=== PATIENT | female | born 1985 | race Caucasian/White ===

== ENCOUNTER 2016-10-24 01:06 | Emergency (ER) | payer SELFPAY ==
[~2016-10-24] VITALS: Ht 160 cm; Wt 69.9 kg
[~2016-10-24 01:06] MED LIST: ACETAMINOPHEN325 M2 PO; ALBUTEROL0.09 MG/A2 INH; AMOXICILLIN500 M2 PO; ANAPROX DS550 MG PO; AURODEX 54 MG/M10 ML OT; CLARITIN10 MG PO; DEBROX15 ML OT; FE-2020 MG PO; FLONASE ALLERG9.9 ML NAS; HYDROCODONE BIT1 T11 PO; IBU800 MG PO; KEFLEX500 MG PO; LATU60TA PO; MACROBID100 M1 PO; MOTRIN800 MG PO; Motrin,Rufen800 MG PO; NUVARING1 ICR VG; PERCOCET 325 MG1 TA5 PO; PREDNISONE10 MG PO; PRENATAL1 TA1 PO; QVAR0.08 MG/AC INH; ROBITUSSIN AC 110 ML PO; ULTRAM50 MG PO; ZOFRAN4 MG PO; ZOLOFT100 MG PO
[2016-10-24 02:34] LABS: BASO # 0.1 10*3/uL (0.0-0.1); BASO % 0.6 % (0.0-1.0); EOS # 0.3 10*3/uL (0.0-0.4); HEMATOCRIT 39.3 % (37.0-47.0); HEMOGLOBIN 12.9 g/dl (12.0-16.0); LYMPH # 3.2 10*3/uL (1.3-4.4); LYMPH % 37.5 % (27.0-41.0); MEAN CELL VOLUME 92.3 fl (81.0-99.0); MEAN CORPUSCULAR HGB 30.3 pg (27.0-31.0); MEAN CORPUSCULAR HGB CONC 32.8 g/dl (33.0-37.0); MEAN PLATELET VOLUME 9.9 fl (9.6-12.3); MONO # 0.6 10*3/uL (0.1-1.0); MONO % 7.2 % (3.0-9.0); NEUT # 4.4 10*3/uL (2.3-7.9); NEUT % 51.6 % (47.0-73.0); PLATELET COUNT AUTOMATED 244 10*3/uL (130-400); RED BLOOD COUNT 4.26 10*6/uL (4.10-5.10); RED CELL DISTRI WIDTH 13.2 % (0-14.5); WHITE BLOOD COUNT 8.6 10*3/uL (4.8-10.8)
[2016-10-24] MEDS ORDERED: Motrin,Rufen800 MG PO (02:38)
[2016-10-24 02:45] LABS: BUN 16 mg/dl (7-24); CARBON DIOXIDE 27 mmol/L (21-32); CHLORIDE 109 mmol/L (98-107); EST GLOM FILT AFRICAN AMERICAN > 60 ml/min; GLUCOSE 95 mg/dL (65-99); POTASSIUM 3.7 mmol/L (3.5-5.1); SODIUM 145 mmol/L (136-145)
[2016-10-24 02:50] LABS: B-hCG (QUALITATIVE) NEGATIVE (NEGATIVE)
== END 2016-10-24 03:09 | disposition home or self-care (01) ==
LOC: ED 01:06
PROVIDERS: Emergency Medicine Emergency Medical Services
DX: S00.03XA Contusion of scalp, initial encounter (principal); G43.909 Migraine, unspecified, not intractable, without status migrainosus; F17.200 Nicotine dependence, unspecified, uncomplicated; Z91.040 Latex allergy status; Z88.1 Allergy status to other antibiotic agents; W18.09XA Striking against other object with subsequent fall, initial encounter; Y93.89 Activity, other specified; Y92.89 Other specified places as the place of occurrence of the external cause; Y99.8 Other external cause status

== ENCOUNTER 2017-01-08 08:35 | Emergency (ER) | payer SELFPAY ==
[~2017-01-08] VITALS: Ht 157.4 cm; Wt 63.5 kg
[2017-01-08] MEDS ORDERED: LATU80TA PO (08:38)
== END 2017-01-08 09:46 | disposition home or self-care (01) ==
LOC: ED 08:35
DX: K08.89 Other specified disorders of teeth and supporting structures (principal); F17.200 Nicotine dependence, unspecified, uncomplicated; Z98.890 Other specified postprocedural states; Z90.49 Acquired absence of other specified parts of digestive tract; Z79.899 Other long term (current) drug therapy; Z91.040 Latex allergy status; Z88.1 Allergy status to other antibiotic agents; Z88.8 Allergy status to other drugs, medicaments and biological substances

== ENCOUNTER 2017-03-11 20:50 | Emergency (ER) | payer SELFPAY ==
[~2017-03-11] VITALS: Ht 172.7 cm; Wt 65.8 kg
[~2017-03-11 20:50] MED LIST changes: +LATU80TA PO
[2017-03-11 21:36] LABS: BASO # 0.1 10*3/uL (0.0-0.1); BASO % 0.6 % (0.0-1.0); EOS # 0.1 10*3/uL (0.0-0.4); EOS % 0.8 % (1.0-4.0); HEMATOCRIT 41.1 % (37.0-47.0); HEMOGLOBIN 13.7 g/dl (12.0-16.0); MEAN CELL VOLUME 91.5 fl (81.0-99.0); MEAN CORPUSCULAR HGB 30.5 pg (27.0-31.0); MEAN CORPUSCULAR HGB CONC 33.3 g/dl (33.0-37.0); MEAN PLATELET VOLUME 9.6 fl (9.6-12.3); MONO # 0.4 10*3/uL (0.1-1.0); NEUT # 6.2 10*3/uL (2.3-7.9); NEUT % 70.4 % (47.0-73.0); PLATELET COUNT AUTOMATED 279 10*3/uL (130-400); RED BLOOD COUNT 4.49 10*6/uL (4.10-5.10); RED CELL DISTRI WIDTH 12.7 % (0-14.5); WHITE BLOOD COUNT 8.8 10*3/uL (4.8-10.8)
[2017-03-11 21:51] LABS: ALBUMIN 3.9 gm/dl (3.1-4.5); ALKALINE PHOSPHATASE 71 U/L (45-117); BILIRUBIN, TOTAL 0.2 mg/dl (0.2-1.0); BUN 12 mg/dl (7-24); CARBON DIOXIDE 25 mmol/L (21-32); CHLORIDE 111 mmol/L (98-107); EST GLOM FILT AFRICAN AMERICAN > 60 ml/min; GLUCOSE 98 mg/dL (65-99); POTASSIUM 4.1 mmol/L (3.5-5.1); SGOT/AST 9 IU/L (3-35); SGPT/ALT 20 U/L (12-78); SODIUM 140 mmol/L (136-145); TOTAL PROTEIN 7.2 gm/dL (6.4-8.2)
[2017-03-11 23:16] LABS: BILIRUBIN NEGATIVE (NEGATIVE); BLOOD NEGATIVE (NEGATIVE); CLARITY CLEAR (CLEAR); COLOR YELLOW (YELLOW); GLUCOSE NEGATIVE (NEGATIVE); KETONE NEGATIVE (NEGATIVE); LEUKO ESTERASE NEGATIVE (NEGATIVE); NITRITE NEGATIVE (NEGATIVE); PROTEIN NEGATIVE (NEGATIVE); UROBILINOGEN 0.2 E.U./dl (0.2-1.0)
[2017-03-11 23:31] LABS: BACTERIA TRACE; RBC 0-2 rbc/hpf (0-2); URINE REFLEX COMMENT NO (NO)
== END 2017-03-11 23:57 | disposition home or self-care (01) ==
LOC: ED 20:50
PROVIDERS: Nurse Practitioner
DX: R10.11 Right upper quadrant pain (principal); Z87.442 Personal history of urinary calculi; Z91.040 Latex allergy status; Z88.1 Allergy status to other antibiotic agents; Z79.899 Other long term (current) drug therapy

== ENCOUNTER 2017-04-07 23:36 | Emergency (ER) | payer SELFPAY ==
[~2017-04-07] VITALS: Ht 157.4 cm; Wt 70.8 kg
[2017-04-08] MEDS ORDERED: ZITHROMAX250 MG PO (00:48)
[2017-04-08] MEDS ORDERED: MEDROL DOSEPAK4 MG PO (00:48)
== END 2017-04-08 01:12 | disposition home or self-care (01) ==
LOC: ED 23:36
DX: J40 Bronchitis, not specified as acute or chronic (principal); F17.200 Nicotine dependence, unspecified, uncomplicated; G43.909 Migraine, unspecified, not intractable, without status migrainosus; Z98.890 Other specified postprocedural states; Z90.49 Acquired absence of other specified parts of digestive tract; Z87.442 Personal history of urinary calculi; Z79.899 Other long term (current) drug therapy; Z91.040 Latex allergy status; Z88.1 Allergy status to other antibiotic agents; Z88.8 Allergy status to other drugs, medicaments and biological substances

== ENCOUNTER 2017-04-14 15:09 | Emergency (ER) | payer SELFPAY ==
[~2017-04-14] VITALS: Wt 69.9 kg
[~2017-04-14 15:09] MED LIST changes: +MEDROL DOSEPAK4 MG PO; +ZITHROMAX250 MG PO
[2017-04-14] MEDS ORDERED: ROBITUSSIN DM 105 ML PO (17:34)
[2017-04-14] MEDS ORDERED: NAPROSYN500 MG PO (17:34)
[2017-04-14] MEDS ORDERED: FLONASE ALLERG9.9 ML NAS (17:34)
== END 2017-04-14 17:45 | disposition home or self-care (01) ==
LOC: ED 15:09
DX: S93.602A Unspecified sprain of left foot, initial encounter (principal); B34.9 Viral infection, unspecified; R03.0 Elevated blood-pressure reading, without diagnosis of hypertension; H92.02 Otalgia, left ear; F17.200 Nicotine dependence, unspecified, uncomplicated; Z91.040 Latex allergy status; Z88.1 Allergy status to other antibiotic agents; Z79.899 Other long term (current) drug therapy; X58.XXXA Exposure to other specified factors, initial encounter; Y93.9 Activity, unspecified; Y92.9 Unspecified place or not applicable; Y99.9 Unspecified external cause status

== ENCOUNTER 2017-05-09 23:25 | Emergency (ER) | payer SELFPAY ==
[~2017-05-09] VITALS: Ht 160 cm; Wt 59.0 kg
[~2017-05-09 23:25] MED LIST changes: +NAPROSYN500 MG PO; +ROBITUSSIN DM 105 ML PO
[2017-05-09] MEDS ORDERED: CLEOCIN HCL300 MG PO (23:43)
== END 2017-05-10 00:33 | disposition home or self-care (01) ==
LOC: ED 23:25
DX: K02.9 Dental caries, unspecified (principal); G43.909 Migraine, unspecified, not intractable, without status migrainosus; F17.200 Nicotine dependence, unspecified, uncomplicated; Z91.040 Latex allergy status; Z88.1 Allergy status to other antibiotic agents

== ENCOUNTER 2017-06-20 17:02 | Emergency (ER) | payer SELFPAY ==
[~2017-06-20] VITALS: Ht 160 cm; Wt 61.2 kg
[~2017-06-20 17:02] MED LIST changes: +CLEOCIN HCL300 MG PO
[2017-06-20] MEDS ORDERED: NAPROSYN500 MG PO (17:09)
[2017-06-20] MEDS ORDERED: PENICILLIN VK500 MG PO (17:09)
[2017-06-20] MEDS ORDERED: Peridex 473 ML473 ML PO (17:09)
== END 2017-06-20 17:09 | disposition home or self-care (01) ==
LOC: ED 17:02
DX: K02.9 Dental caries, unspecified (principal); G43.909 Migraine, unspecified, not intractable, without status migrainosus; F17.200 Nicotine dependence, unspecified, uncomplicated; Z91.040 Latex allergy status; Z88.1 Allergy status to other antibiotic agents

== ENCOUNTER 2017-07-09 07:49 | Emergency (ER) | payer SELFPAY ==
[~2017-07-09] VITALS: Ht 160 cm; Wt 64.9 kg
[~2017-07-09 07:49] MED LIST changes: +PENICILLIN VK500 MG PO; +Peridex 473 ML473 ML PO
[2017-07-09] MEDS ORDERED: PENICILLIN VK500 MG PO (08:10)
[2017-07-09] MEDS ORDERED: NAPROSYN500 MG PO (08:10)
== END 2017-07-09 09:02 | disposition home or self-care (01) ==
LOC: ED 07:49
DX: K02.9 Dental caries, unspecified (principal); G43.909 Migraine, unspecified, not intractable, without status migrainosus; J45.901 Unspecified asthma with (acute) exacerbation; Z90.49 Acquired absence of other specified parts of digestive tract; F17.200 Nicotine dependence, unspecified, uncomplicated; F10.10 Alcohol abuse, uncomplicated; Z91.040 Latex allergy status; Z88.2 Allergy status to sulfonamides; Z88.1 Allergy status to other antibiotic agents; Z88.8 Allergy status to other drugs, medicaments and biological substances

== ENCOUNTER 2017-08-05 08:03 | Emergency (ER) | payer SELFPAY ==
[~2017-08-05] VITALS: Wt 69.4 kg
[2017-08-05] MEDS ORDERED: Motrin,Rufen800 MG PO (10:30)
== END 2017-08-05 10:45 | disposition home or self-care (01) ==
LOC: ED 08:03
DX: S80.01XA Contusion of right knee, initial encounter (principal); S60.211A Contusion of right wrist, initial encounter; F17.200 Nicotine dependence, unspecified, uncomplicated; Z91.040 Latex allergy status; Z88.1 Allergy status to other antibiotic agents; W00.0XXA Fall on same level due to ice and snow, initial encounter; Y93.89 Activity, other specified; Y92.89 Other specified places as the place of occurrence of the external cause; Y99.8 Other external cause status

== ENCOUNTER 2017-09-12 00:42 | Emergency (ER) | payer SELFPAY ==
[~2017-09-12] VITALS: Ht 160 cm; Wt 61.2 kg
[2017-09-12 01:17] LABS: BASO % 0.3 % (0.0-1.0); EOS # 0.3 10*3/uL (0.0-0.4); EOS % 3.2 % (1.0-4.0); HEMATOCRIT 35.8 % (37.0-47.0); HEMOGLOBIN 11.8 g/dl (12.0-16.0); LYMPH # 2.9 10*3/uL (1.3-4.4); LYMPH % 32.4 % (27.0-41.0); MEAN PLATELET VOLUME 9.7 fl (9.6-12.3); MONO # 0.7 10*3/uL (0.1-1.0); MONO % 7.7 % (3.0-9.0); NEUT % 56.2 % (47.0-73.0); PLATELET COUNT AUTOMATED 271 10*3/uL (130-400); RED BLOOD COUNT 3.81 10*6/uL (4.10-5.10); RED CELL DISTRI WIDTH 13.9 % (0-14.5); WHITE BLOOD COUNT 8.9 10*3/uL (4.8-10.8)
[2017-09-12 01:29] LABS: BUN 16 mg/dl (7-24); CHLORIDE 109 mmol/L (98-107); CREATININE 0.86 mg/dL (0.55-1.02); POTASSIUM 3.7 mmol/L (3.5-5.1); SODIUM 141 mmol/L (136-145)
[2017-09-12] MEDS ORDERED: ZOFRAN ODT4 MG SL (01:53)
[2017-09-12] MEDS ORDERED: Motrin,Rufen800 MG PO (01:53)
== END 2017-09-12 02:16 | disposition home or self-care (01) ==
LOC: ED 00:42
PROVIDERS: Emergency Medicine Emergency Medical Services
DX: G43.919 Migraine, unspecified, intractable, without status migrainosus (principal); Z87.442 Personal history of urinary calculi; Z98.890 Other specified postprocedural states; Z90.49 Acquired absence of other specified parts of digestive tract; Z91.040 Latex allergy status; Z88.1 Allergy status to other antibiotic agents; Z88.8 Allergy status to other drugs, medicaments and biological substances

== ENCOUNTER 2017-10-17 10:57 | Emergency (ER) | payer SELFPAY ==
[~2017-10-17] VITALS: Ht 160 cm; Wt 64.9 kg
[~2017-10-17 10:57] MED LIST changes: +ZOFRAN ODT4 MG SL
[2017-10-17] MEDS ORDERED: PREDNISONE20 M1 PO (11:38)
[2017-10-17] MEDS ORDERED: NAPROSYN500 MG PO (11:38)
== END 2017-10-17 11:56 | disposition home or self-care (01) ==
LOC: ED 10:57
DX: M43.12 Spondylolisthesis, cervical region (principal); F17.210 Nicotine dependence, cigarettes, uncomplicated; Z88.1 Allergy status to other antibiotic agents; Z91.040 Latex allergy status

== ENCOUNTER 2017-11-03 13:13 | Emergency (ER) | payer SELFPAY ==
[~2017-11-03] VITALS: Ht 160 cm; Wt 64.9 kg
[~2017-11-03 13:13] MED LIST changes: +PREDNISONE20 M1 PO
[2017-11-03] MEDS ORDERED: PENICILLIN VK500 MG PO (13:22)
[2017-11-03] MEDS ORDERED: Peridex 473 ML473 ML PO (13:22)
[2017-11-03] MEDS ORDERED: ZOFRAN4 MG PO (13:22)
[2017-11-03] MEDS ORDERED: NAPROSYN500 MG PO (13:22)
== END 2017-11-03 13:31 | disposition home or self-care (01) ==
LOC: ED 13:13
DX: K08.89 Other specified disorders of teeth and supporting structures (principal); G43.909 Migraine, unspecified, not intractable, without status migrainosus; Z98.890 Other specified postprocedural states; Z90.49 Acquired absence of other specified parts of digestive tract; Z87.442 Personal history of urinary calculi; Z79.899 Other long term (current) drug therapy; Z91.040 Latex allergy status; Z88.1 Allergy status to other antibiotic agents; Z88.8 Allergy status to other drugs, medicaments and biological substances

== ENCOUNTER 2017-11-09 15:28 | Emergency (ER) | payer SELFPAY ==
[~2017-11-09] VITALS: Ht 160 cm; Wt 63.5 kg
[2017-11-09] MEDS ORDERED: TESSALON PERLE100 M1 PO (17:26)
[2017-11-09] MEDS ORDERED: PROAIR HFA8.5 GM INH (17:26)
[2017-11-09] MEDS ORDERED: MUCINEX1200 M1 PO (17:26)
== END 2017-11-09 17:30 | disposition home or self-care (01) ==
LOC: ED 15:28
DX: J06.9 Acute upper respiratory infection, unspecified (principal); F17.200 Nicotine dependence, unspecified, uncomplicated; J45.909 Unspecified asthma, uncomplicated; Z98.890 Other specified postprocedural states; Z90.49 Acquired absence of other specified parts of digestive tract; Z79.899 Other long term (current) drug therapy; Z91.040 Latex allergy status; Z88.1 Allergy status to other antibiotic agents; Z88.2 Allergy status to sulfonamides; Z88.8 Allergy status to other drugs, medicaments and biological substances

== ENCOUNTER 2017-12-08 12:28 | Emergency (ER) | payer SELFPAY ==
[~2017-12-08] VITALS: Ht 167.6 cm; Wt 63.5 kg
[~2017-12-08 12:28] MED LIST changes: +MUCINEX1200 M1 PO; +PROAIR HFA8.5 GM INH; +TESSALON PERLE100 M1 PO
[2017-12-08 12:56] LABS: BILIRUBIN NEGATIVE (NEGATIVE); BLOOD TRACE-LYSED (NEGATIVE); CLARITY CLOUDY (CLEAR); COLOR YELLOW (YELLOW); GLUCOSE NEGATIVE (NEGATIVE); KETONE NEGATIVE (NEGATIVE); LEUKO ESTERASE 1+ (NEGATIVE); NITRITE NEGATIVE (NEGATIVE); SPECIFIC GRAVITY 1.025 (1.005-1.030); UROBILINOGEN 0.2 E.U./dl (0.2-1.0)
[2017-12-08 13:09] LABS: BACTERIA 4+; EPITHELIAL CELLS 20-30; WBC 41-50 wbc/hpf (0-5)
[2017-12-08 13:37] LABS: BASO # 0.1 10*3/uL (0.0-0.1); BASO % 0.7 % (0.0-1.0); EOS # 0.2 10*3/uL (0.0-0.4); EOS % 2.5 % (1.0-4.0); HEMATOCRIT 41.4 % (37.0-47.0); HEMOGLOBIN 13.3 g/dl (12.0-16.0); LYMPH # 2.2 10*3/uL (1.3-4.4); LYMPH % 32.7 % (27.0-41.0); MEAN CELL VOLUME 96.5 fl (81.0-99.0); MEAN CORPUSCULAR HGB CONC 32.1 g/dl (33.0-37.0); MEAN PLATELET VOLUME 9.7 fl (9.6-12.3); MONO # 0.5 10*3/uL (0.1-1.0); MONO % 6.8 % (3.0-9.0); NEUT # 3.9 10*3/uL (2.3-7.9); NEUT % 56.9 % (47.0-73.0); PLATELET COUNT AUTOMATED 244 10*3/uL (130-400); RED BLOOD COUNT 4.29 10*6/uL (4.10-5.10); RED CELL DISTRI WIDTH 12.8 % (0-14.5); WHITE BLOOD COUNT 6.8 10*3/uL (4.8-10.8)
[2017-12-08 13:46] LABS: ACT PARTIAL THROMBO TIME 21.4 SECONDS (20.8-31.5)
[2017-12-08 13:49] LABS: ALBUMIN 3.9 gm/dl (3.1-4.5); BUN 18 mg/dl (7-24); CHLORIDE 113 mmol/L (98-107); POTASSIUM 3.8 mmol/L (3.5-5.1); SGOT/AST 18 IU/L (3-35); SGPT/ALT 20 U/L (12-78); SODIUM 142 mmol/L (136-145)
[2017-12-08 13:50] LABS: ALKALINE PHOSPHATASE 60 U/L (45-117)
== END 2017-12-08 13:58 | disposition home or self-care (01) ==
LOC: ED 12:28
PROVIDERS: Emergency Medicine
DX: G43.109 Migraine with aura, not intractable, without status migrainosus (principal); R19.7 Diarrhea, unspecified; R11.2 Nausea with vomiting, unspecified; Z91.040 Latex allergy status; Z88.1 Allergy status to other antibiotic agents

== ENCOUNTER 2017-12-16 19:28 | Emergency (ER) | payer SELFPAY ==
[~2017-12-16] VITALS: Ht 160 cm; Wt 64.9 kg
[2017-12-16] MEDS ORDERED: CLINDAMYCIN HC300 MG PO (19:58)
== END 2017-12-16 20:35 | disposition home or self-care (01) ==
LOC: ED 19:28
DX: K02.9 Dental caries, unspecified (principal); G43.909 Migraine, unspecified, not intractable, without status migrainosus; Z98.890 Other specified postprocedural states; Z90.49 Acquired absence of other specified parts of digestive tract; Z87.442 Personal history of urinary calculi; Z79.899 Other long term (current) drug therapy; Z88.1 Allergy status to other antibiotic agents; Z91.040 Latex allergy status; Z88.8 Allergy status to other drugs, medicaments and biological substances

== ENCOUNTER 2018-02-24 22:07 | Emergency (ER) | payer SELFPAY ==
[~2018-02-24] VITALS: Wt 65.3 kg
--- NOTE | ~2018-02-24 | EKG ---
[place], [place] ELECTROCARDIOGRAM REPORT NAME: ARIC SANTANA UNIT #: [id number] ROOM: DOCTOR: EPIPHANY DRAFT REPORT BIRTHDATE: [birth year] [facility] Test Date: 2018-02-24 Test Time: 22:11:50 Pat Name: ARIC SANTANA Department: ER Room: Gender: F Manager [employer] Resources: : 1985 Requested By: SAGAR LALA Order Number: [id number] Reading MD: Rizwan Hess MD Measurements Intervals Clifford Rate: 86 P: 55 CO: 131 QRS: 52 QRSD: 79 T: 28 QT: 368 QTc: 440 Interpretive Statements Sinus rhythm Electronically Signed On 02-25-2018 10:20:01 PDT by Rizwan Hess MD CM:EKGRPT:ELECTROCARDIOGRAM REPORT 2211 1020 SAGAR ALFORD DRAFT REPORT SAGAR LALA DO
[~2018-02-24 22:07] MED LIST changes: +CLINDAMYCIN HC300 MG PO
[2018-02-24 22:23] LABS: BASO # 0.1 10*3/uL (0.0-0.1); BASO % 0.6 % (0.0-1.0); EOS # 0.3 10*3/uL (0.0-0.4); EOS % 1.9 % (1.0-4.0); HEMATOCRIT 42.7 % (37.0-47.0); HEMOGLOBIN 14.2 g/dl (12.0-16.0); LYMPH % 22.4 % (27.0-41.0); MEAN CORPUSCULAR HGB 30.9 pg (27.0-31.0); MEAN CORPUSCULAR HGB CONC 33.3 g/dl (33.0-37.0); MEAN PLATELET VOLUME 9.6 fl (9.6-12.3); MONO # 0.6 10*3/uL (0.1-1.0); MONO % 4.4 % (3.0-9.0); NEUT # 9.5 10*3/uL (2.3-7.9); NEUT % 70.4 % (47.0-73.0); PLATELET COUNT AUTOMATED 300 10*3/uL (130-400); RED BLOOD COUNT 4.59 10*6/uL (4.10-5.10); RED CELL DISTRI WIDTH 12.9 % (0-14.5); WHITE BLOOD COUNT 13.5 10*3/uL (4.8-10.8)
[2018-02-24 22:39] LABS: ALBUMIN 4.1 gm/dl (3.1-4.5); ALKALINE PHOSPHATASE 81 U/L (45-117); BUN 12 mg/dl (7-24); CHLORIDE 107 mmol/L (98-107); CREATININE 0.83 mg/dL (0.55-1.02); POTASSIUM 3.7 mmol/L (3.5-5.1); SGOT/AST 15 IU/L (3-35); SGPT/ALT 25 U/L (12-78); SODIUM 139 mmol/L (136-145); TOTAL PROTEIN 7.9 gm/dL (6.4-8.2)
[2018-02-24 22:40] LABS: TROPONIN I < 0.015 ng/ml (<0.045)
[2018-02-25] MEDS ORDERED: KETOROLAC10 MG PO (01:41)
== END 2018-02-25 01:59 | disposition home or self-care (01) ==
LOC: ED 22:07
PROVIDERS: Student in an Organized Health Care Education/Training Program
DX: R07.9 Chest pain, unspecified (principal); R06.02 Shortness of breath; R09.81 Nasal congestion; Z91.040 Latex allergy status; Z88.2 Allergy status to sulfonamides; Z88.1 Allergy status to other antibiotic agents; Z79.899 Other long term (current) drug therapy; Z90.49 Acquired absence of other specified parts of digestive tract

== ENCOUNTER 2018-05-28 01:16 | Emergency (ER) | payer SELFPAY ==
[~2018-05-28] VITALS: Ht 157.4 cm; Wt 71.7 kg
[~2018-05-28 01:16] MED LIST changes: +KETOROLAC10 MG PO
[2018-06-12] MEDS ORDERED: PEPCID20 MG PO (02:47)
[2018-06-12] MEDS ORDERED: ZITHROMAX250 MG PO (02:47)
== END 2018-05-28 01:34 | disposition home or self-care (01) ==
LOC: ED 01:16
DX: S81.812A Laceration without foreign body, left lower leg, initial encounter (principal); Z91.040 Latex allergy status; Z88.1 Allergy status to other antibiotic agents; Z88.2 Allergy status to sulfonamides; X58.XXXA Exposure to other specified factors, initial encounter; Y93.89 Activity, other specified; Y92.89 Other specified places as the place of occurrence of the external cause; Y99.8 Other external cause status

== ENCOUNTER 2018-08-10 13:24 | Emergency (ER) | payer SELFPAY ==
[~2018-08-10] VITALS: Ht 160 cm; Wt 70.8 kg
[~2018-08-10 13:24] MED LIST changes: +PEPCID20 MG PO
[2018-08-10] MEDS ORDERED: CLARITIN10 MG PO (13:51)
[2018-08-10] MEDS ORDERED: FLONASE ALLERG9.9 ML NAS (13:51)
[2018-08-10] MEDS ORDERED: PREDNISONE10 MG PO (13:51)
== END 2018-08-10 14:53 | disposition home or self-care (01) ==
LOC: ED 13:24
DX: B34.9 Viral infection, unspecified (principal); R03.0 Elevated blood-pressure reading, without diagnosis of hypertension; K21.9 Gastro-esophageal reflux disease without esophagitis; G43.909 Migraine, unspecified, not intractable, without status migrainosus; F17.200 Nicotine dependence, unspecified, uncomplicated; Z91.040 Latex allergy status; Z88.2 Allergy status to sulfonamides; Z88.1 Allergy status to other antibiotic agents; Z79.2 Long term (current) use of antibiotics; Z79.899 Other long term (current) drug therapy; Z87.442 Personal history of urinary calculi; Z90.49 Acquired absence of other specified parts of digestive tract

== ENCOUNTER → 2018-10-27 | Emergency (ER) | payer SELFPAY ==
[~2018-10-27] VITALS: Ht 160 cm; Wt 75.7 kg
[~2018-10-27] MED LIST changes: +AUGMENTIN 875875 MG PO; +FLAGYL500 MG PO; +PROVENTIL HFA6.7 GM INH
== END ==
LOC: ED 14:29
DX: J45.909 Unspecified asthma, uncomplicated (principal); G43.909 Migraine, unspecified, not intractable, without status migrainosus; Z91.040 Latex allergy status; Z88.2 Allergy status to sulfonamides; Z88.1 Allergy status to other antibiotic agents; Z79.2 Long term (current) use of antibiotics; Z79.899 Other long term (current) drug therapy; Z87.891 Personal history of nicotine dependence

== ENCOUNTER 2018-11-02 13:50 | Emergency (ER) | payer SELFPAY ==
[~2018-11-02] VITALS: Ht 160 cm; Wt 75.7 kg
[~2018-11-02 13:50] MED LIST changes: -AUGMENTIN 875875 MG PO; -FLAGYL500 MG PO
[2019-01-11] MEDS ORDERED: FLAGYL500 MG PO ×2 (22:51→22:52)
[2019-01-11] MEDS ORDERED: ANAPROX DS550 MG PO (22:55)
== END 2018-11-02 16:30 | disposition home or self-care (01) ==
LOC: ED 13:50
DX: S66.911A Strain of unspecified muscle, fascia and tendon at wrist and hand level, right hand, initial encounter (principal); Z91.040 Latex allergy status; Z88.2 Allergy status to sulfonamides; Z88.1 Allergy status to other antibiotic agents; W11.XXXA Fall on and from ladder, initial encounter; Y93.89 Activity, other specified; Y92.098 Other place in other non-institutional residence as the place of occurrence of the external cause; Y99.8 Other external cause status

== ENCOUNTER 2018-12-01 03:21 | Emergency (ER) | payer SELFPAY ==
[~2018-12-01] VITALS: Ht 160 cm; Wt 73.9 kg
[2018-12-01] MEDS ORDERED: AUGMENTIN 875875 MG PO (03:59)
[2019-01-11] MEDS ORDERED: FLAGYL500 MG PO ×2 (22:51→22:52)
[2019-01-11] MEDS ORDERED: ANAPROX DS550 MG PO (22:55)
== END 2018-12-01 04:04 | disposition home or self-care (01) ==
LOC: ED 03:21
DX: H66.91 Otitis media, unspecified, right ear (principal); K21.9 Gastro-esophageal reflux disease without esophagitis; G43.909 Migraine, unspecified, not intractable, without status migrainosus; F17.200 Nicotine dependence, unspecified, uncomplicated; Z91.040 Latex allergy status; Z88.2 Allergy status to sulfonamides; Z88.1 Allergy status to other antibiotic agents

== ENCOUNTER 2019-01-15 00:39 | Emergency (ER) | payer SELFPAY ==
[~2019-01-15] VITALS: Ht 160 cm; Wt 69.4 kg
[~2019-01-15 00:39] MED LIST changes: +AUGMENTIN 875875 MG PO; +FLAGYL500 MG PO
[2019-01-15 01:32] LABS: URINE AMPHETAMINES < 1000 (1000ng/ml); URINE BARBITURATES < 200 (200ng/ml); URINE BENZODIAZEPINES > 200 (200ng/ml); URINE CANNABINOIDS (THC) > 50 (50ng/ml); URINE COCAINE < 300 (300ng/ml); URINE METHADONE < 300 (300ng/ml); URINE OPIATES < 300 (300ng/ml); URINE PHENCYCLIDINE < 25 (25ng/ml)
== END 2019-01-15 02:00 | disposition home or self-care (01) ==
LOC: ED 00:39
PROVIDERS: Nurse Practitioner Family
DX: S01.81XA Laceration without foreign body of other part of head, initial encounter (principal); R42 Dizziness and giddiness; K21.9 Gastro-esophageal reflux disease without esophagitis; G43.909 Migraine, unspecified, not intractable, without status migrainosus; Z91.040 Latex allergy status; Z88.2 Allergy status to sulfonamides; Z88.1 Allergy status to other antibiotic agents; Z79.899 Other long term (current) drug therapy; Z79.2 Long term (current) use of antibiotics; Z87.442 Personal history of urinary calculi; Z90.49 Acquired absence of other specified parts of digestive tract; W10.8XXA Fall (on) (from) other stairs and steps, initial encounter; Y93.89 Activity, other specified; Y92.098 Other place in other non-institutional residence as the place of occurrence of the external cause; Y99.8 Other external cause status

== ENCOUNTER → 2019-01-26 | Outpatient (CLI) | payer SELFPAY | END | disposition home or self-care (01) | LOC: US 17:00 | DX: R10.2 Pelvic and perineal pain (principal) ==

== ENCOUNTER 2019-06-30 10:36 | Emergency (ER) | payer SELFPAY ==
[~2019-06-30] VITALS: Ht 160 cm; Wt 66.2 kg
[2019-06-30] MEDS ORDERED: OFLOXACIN OTIC5 ML OPH (11:24)
[2019-06-30] MEDS ORDERED: CEPHALEXIN500 M1 PO (11:24)
== END 2019-06-30 12:08 | disposition home or self-care (01) ==
LOC: ED 10:36
DX: H60.61 Unspecified chronic otitis externa, right ear (principal); J02.9 Acute pharyngitis, unspecified; Z91.040 Latex allergy status; Z88.2 Allergy status to sulfonamides; Z88.1 Allergy status to other antibiotic agents; Z79.899 Other long term (current) drug therapy; Z79.2 Long term (current) use of antibiotics

== ENCOUNTER → 2019-07-16 | Outpatient (CLI) | payer OTHER ==
[~2019-07-16] MED LIST changes: +CEPHALEXIN500 M1 PO; +OFLOXACIN OTIC5 ML OPH
== END | disposition home or self-care (01) ==
LOC: RESCLI 00:39
DX: Z23 Encounter for immunization (principal); H66.91 Otitis media, unspecified, right ear; R00.0 Tachycardia, unspecified; F31.9 Bipolar disorder, unspecified; N30.10 Interstitial cystitis (chronic) without hematuria; J45.909 Unspecified asthma, uncomplicated; F17.210 Nicotine dependence, cigarettes, uncomplicated; Z79.1 Long term (current) use of non-steroidal anti-inflammatories (NSAID); Z79.899 Other long term (current) drug therapy

== ENCOUNTER 2019-08-06 12:30 | Emergency (ER) | payer OTHER ==
[~2019-08-06] VITALS: Ht 160 cm; Wt 64.4 kg
== END 2019-08-06 14:14 | disposition home or self-care (01) ==
LOC: ED
DX: M54.2 Cervicalgia (principal); M25.512 Pain in left shoulder; R20.2 Paresthesia of skin; R07.9 Chest pain, unspecified; R06.02 Shortness of breath; K21.9 Gastro-esophageal reflux disease without esophagitis; G43.909 Migraine, unspecified, not intractable, without status migrainosus; J45.909 Unspecified asthma, uncomplicated; Z91.040 Latex allergy status; Z88.1 Allergy status to other antibiotic agents; Z88.2 Allergy status to sulfonamides; X50.0XXA Overexertion from strenuous movement or load, initial encounter; Y93.89 Activity, other specified; Y92.89 Other specified places as the place of occurrence of the external cause; Y99.8 Other external cause status

== ENCOUNTER 2019-08-09 17:18 | Emergency (ER) | payer OTHER ==
[~2019-08-09] VITALS: Ht 160 cm; Wt 64.4 kg
[2019-08-09] MEDS ORDERED: MEDROL DOSEPAK4 MG PO (19:52)
== END 2019-08-09 20:07 | disposition home or self-care (01) ==
LOC: ED 17:18
DX: M54.2 Cervicalgia (principal); J45.909 Unspecified asthma, uncomplicated; G43.909 Migraine, unspecified, not intractable, without status migrainosus; Z91.040 Latex allergy status; Z88.2 Allergy status to sulfonamides; Z88.1 Allergy status to other antibiotic agents

== ENCOUNTER → 2019-09-03 | Outpatient (CLI) | payer OTHER | END | disposition home or self-care (01) | LOC: RESCLI 00:33 | DX: H91.91 Unspecified hearing loss, right ear (principal); F31.9 Bipolar disorder, unspecified; R00.0 Tachycardia, unspecified; Z88.8 Allergy status to other drugs, medicaments and biological substances ==

== ENCOUNTER → 2019-10-21 | Outpatient (CLI) | payer OTHER ==
[2019-10-21 13:23] LABS: HEMOGLOBIN 15.4 g/dl (12.0-16.0); MEAN CELL VOLUME 97.1 fl (81.0-99.0); MEAN CORPUSCULAR HGB 31.8 pg (27.0-31.0); MEAN CORPUSCULAR HGB CONC 32.8 g/dl (33.0-37.0); MEAN PLATELET VOLUME 9.6 fl (9.6-12.3); RED BLOOD COUNT 4.84 10*6/uL (4.10-5.10); RED CELL DISTRI WIDTH 13.1 % (0-14.5); WHITE BLOOD COUNT 11.7 10*3/uL (4.8-10.8)
[2019-10-21 13:38] LABS: ALBUMIN 4.3 gm/dl (3.1-4.5); ALKALINE PHOSPHATASE 96 U/L (45-117); BUN 13 mg/dl (7-24); CHLORIDE 109 mmol/L (98-107); CHOLESTEROL 175 mg/dL (<200); CREATININE 0.85 mg/dL (0.55-1.02); HDL CHOLESTEROL 42 mg/dl (40-60); LDL CHOLESTEROL 107 mg/dL (9-159); POTASSIUM 4.1 mmol/L (3.5-5.1); SGOT/AST 16 IU/L (3-35); SGPT/ALT 26 U/L (12-78); SODIUM 140 mmol/L (136-145); TOTAL PROTEIN 8.1 gm/dL (6.4-8.2); TRIGLYCERIDES 132 mg/dl (<150); VLDL CHOLESTEROL 26 mg/dL (6-40)
== END | disposition home or self-care (01) ==
LOC: LAB 13:03
PROVIDERS: Family Medicine
DX: E78.00 Pure hypercholesterolemia, unspecified (principal); R53.83 Other fatigue; R05 Cough; F17.200 Nicotine dependence, unspecified, uncomplicated

== ENCOUNTER → 2019-11-18 | Outpatient (CLI) | payer OTHER | LOC: MAMMO 08:00 | DX: N64.9 Disorder of breast, unspecified (principal); R10.2 Pelvic and perineal pain ==

== ENCOUNTER → 2019-12-16 | Outpatient (CLI) | payer OTHER | END | disposition home or self-care (01) | LOC: COVID19 15:36 | DX: R06.02 Shortness of breath (principal); Z20.828 Contact with and (suspected) exposure to other viral communicable diseases ==

== ENCOUNTER 2020-01-09 23:34 | Emergency (ER) | payer OTHER ==
[~2020-01-09] VITALS: Ht 160 cm
[2020-01-09 23:56] LABS: BASO # 0.1 10*3/uL (0.0-0.1); BASO % 0.4 % (0.0-1.0); EOS # 0.2 10*3/uL (0.0-0.4); EOS % 0.7 % (1.0-4.0); HEMATOCRIT 44.8 % (37.0-47.0); LYMPH % 15.8 % (27.0-41.0); MEAN CELL VOLUME 95.1 fl (81.0-99.0); MEAN CORPUSCULAR HGB 31.4 pg (27.0-31.0); MEAN PLATELET VOLUME 9.1 fl (9.6-12.3); MONO # 1.2 10*3/uL (0.1-1.0); MONO % 4.8 % (3.0-9.0); NEUT # 19.6 10*3/uL (2.3-7.9); NEUT % 77.9 % (47.0-73.0); PLATELET COUNT AUTOMATED 365 10*3/uL (130-400); RED BLOOD COUNT 4.71 10*6/uL (4.10-5.10); RED CELL DISTRI WIDTH 13.3 % (0-14.5); WHITE BLOOD COUNT 25.1 10*3/uL (4.8-10.8)
[2020-01-10 00:15] LABS: ALBUMIN 4.4 gm/dl (3.1-4.5); ALKALINE PHOSPHATASE 90 U/L (45-117); BUN 8 mg/dl (7-24); CHLORIDE 107 mmol/L (98-107); CREATININE 0.82 mg/dL (0.55-1.02); POTASSIUM 3.8 mmol/L (3.5-5.1); SGOT/AST 23 IU/L (3-35); SGPT/ALT 31 U/L (12-78); SODIUM 139 mmol/L (136-145); TOTAL PROTEIN 8.3 gm/dL (6.4-8.2)
[2020-01-10 01:36] LABS: CLARITY CLEAR (CLEAR); COLOR YELLOW (YELLOW)
[2020-01-10 01:37] LABS: BILIRUBIN NEGATIVE (NEGATIVE); BLOOD NEGATIVE (NEGATIVE); GLUCOSE NEGATIVE (NEGATIVE); KETONE NEGATIVE (NEGATIVE); NITRITE NEGATIVE (NEGATIVE); UROBILINOGEN 0.2 E.U./dl (0.2-1.0)
[2020-01-10 01:42] LABS: LEUKO ESTERASE TRACE (NEGATIVE)
[2020-01-10 01:44] LABS: BACTERIA 1+; EPITHELIAL CELLS TNTC
[2020-01-10 01:46] LABS: URINE AMPHETAMINES < 1000 (1000ng/ml); URINE BARBITURATES < 200 (200ng/ml); URINE BENZODIAZEPINES < 200 (200ng/ml); URINE CANNABINOIDS (THC) > 50 (50ng/ml); URINE COCAINE < 300 (300ng/ml); URINE METHADONE < 300 (300ng/ml); URINE OPIATES < 300 (300ng/ml); URINE PHENCYCLIDINE < 25 (25ng/ml)
[2020-01-10] MEDS ORDERED: MEDROL DOSEPAK4 MG PO (02:07)
== END 2020-01-10 02:10 | disposition home or self-care (01) ==
LOC: ED 23:34
PROVIDERS: Emergency Medicine
DX: J45.901 Unspecified asthma with (acute) exacerbation (principal); R06.4 Hyperventilation; Z91.040 Latex allergy status; Z88.8 Allergy status to other drugs, medicaments and biological substances; Z79.899 Other long term (current) drug therapy

== ENCOUNTER 2020-04-20 18:55 | Emergency (ER) | payer OTHER ==
[~2020-04-20] VITALS: Ht 160 cm; Wt 59.0 kg
[2020-04-20] MEDS ORDERED: AUGMENTIN 875-875 MG PO (20:59)
== END 2020-04-20 21:10 | disposition home or self-care (01) ==
LOC: ED 18:55
DX: S60.022A Contusion of left index finger without damage to nail, initial encounter (principal); Z23 Encounter for immunization; Z91.040 Latex allergy status; Z88.1 Allergy status to other antibiotic agents; Y04.1XXA Assault by human bite, initial encounter; Y93.89 Activity, other specified; Y92.89 Other specified places as the place of occurrence of the external cause; Y99.8 Other external cause status

== ENCOUNTER 2020-05-25 11:02 | Emergency (ER) | payer OTHER ==
[~2020-05-25] VITALS: Wt 61.2 kg
[~2020-05-25 11:02] MED LIST changes: +AUGMENTIN 875-875 MG PO
[2020-05-25] MEDS ORDERED: PREDNISONE20 M1 PO (12:31)
[2020-05-25] MEDS ORDERED: PROAIR HFA8.5 GM INH (12:31)
== END 2020-05-25 12:40 | disposition home or self-care (01) ==
LOC: ED 11:02
DX: J20.9 Acute bronchitis, unspecified (principal); Z20.828 Contact with and (suspected) exposure to other viral communicable diseases; Z88.2 Allergy status to sulfonamides; Z91.040 Latex allergy status; Z88.8 Allergy status to other drugs, medicaments and biological substances; Z79.899 Other long term (current) drug therapy

== ENCOUNTER 2020-08-28 14:43 | Emergency (ER) | payer OTHER ==
[~2020-08-28] VITALS: Ht 160 cm; Wt 68.0 kg
[2020-08-28] MEDS ORDERED: ZOLOFT100 MG PO (14:57)
[2020-08-28] MEDS ORDERED: PREDNISONE20 M1 PO (15:56)
[2020-08-28] MEDS ORDERED: PROVENTIL HFA6.7 GM INH (15:56)
== END 2020-08-28 18:25 | disposition home or self-care (01) ==
LOC: ED 14:43
DX: J20.9 Acute bronchitis, unspecified (principal); J45.909 Unspecified asthma, uncomplicated; F41.9 Anxiety disorder, unspecified; F31.9 Bipolar disorder, unspecified; G43.909 Migraine, unspecified, not intractable, without status migrainosus; F17.200 Nicotine dependence, unspecified, uncomplicated; Z20.822 Contact with and (suspected) exposure to COVID-19; Z91.040 Latex allergy status; Z88.2 Allergy status to sulfonamides; Z88.1 Allergy status to other antibiotic agents; Z79.899 Other long term (current) drug therapy; Z98.890 Other specified postprocedural states; Z90.49 Acquired absence of other specified parts of digestive tract; Z87.442 Personal history of urinary calculi

== ENCOUNTER 2020-09-05 11:40 | Emergency (ER) | payer OTHER ==
[~2020-09-05] VITALS: Wt 68.0 kg
[2020-09-05] MEDS ORDERED: PREDNISONE50 MG PO (12:16)
== END 2020-09-05 12:29 | disposition home or self-care (01) ==
LOC: ED 11:40
DX: L25.9 Unspecified contact dermatitis, unspecified cause (principal); J45.909 Unspecified asthma, uncomplicated; F41.9 Anxiety disorder, unspecified; G43.909 Migraine, unspecified, not intractable, without status migrainosus; Z91.040 Latex allergy status; Z88.2 Allergy status to sulfonamides; Z88.8 Allergy status to other drugs, medicaments and biological substances; Z79.899 Other long term (current) drug therapy; Z90.49 Acquired absence of other specified parts of digestive tract; Z98.890 Other specified postprocedural states

== ENCOUNTER 2020-09-17 18:59 | Emergency (ER) | payer OTHER ==
[~2020-09-17] VITALS: Ht 160 cm; Wt 68.0 kg
[~2020-09-17 18:59] MED LIST changes: +PREDNISONE50 MG PO
[2020-09-17 19:59] LABS: BASO % 0.3 % (0.0-1.0); EOS # 0.2 10*3/uL (0.0-0.4); EOS % 2.5 % (1.0-4.0); LYMPH # 2.6 10*3/uL (1.3-4.4); MEAN CELL VOLUME 96.4 fl (81.0-99.0); MEAN CORPUSCULAR HGB 31.9 pg (27.0-31.0); MEAN PLATELET VOLUME 9.3 fl (9.6-12.3); MONO # 0.5 10*3/uL (0.1-1.0); MONO % 5.9 % (3.0-9.0); NEUT # 5.6 10*3/uL (2.3-7.9); PLATELET COUNT AUTOMATED 305 10*3/uL (130-400); RED BLOOD COUNT 4.77 10*6/uL (4.10-5.10)
[2020-09-17 20:18] LABS: ALBUMIN 3.7 gm/dl (3.1-4.5); ALKALINE PHOSPHATASE 70 U/L (45-117); BUN 14 mg/dl (7-24); CHLORIDE 110 mmol/L (98-107); CREATININE 0.89 mg/dL (0.55-1.02); LIPASE 73 U/L (73-393); SGOT/AST 8 IU/L (3-35); SGPT/ALT 31 U/L (12-78); SODIUM 140 mmol/L (136-145); TOTAL PROTEIN 7.3 gm/dL (6.4-8.2)
[2020-09-17 20:23] LABS: BILIRUBIN Negative (Negative); BLOOD Negative (Negative); CLARITY Clear (Clear); COLOR Yellow (Yellow); GLUCOSE Negative (Negative); KETONE Trace (Negative); LEUKO ESTERASE Negative (Negative); NITRITE Negative (Negative); SPECIFIC GRAVITY 1.025 (1.001-1.030)
[2020-09-17 20:46] LABS: BACTERIA TRACE
== END 2020-09-17 22:46 | disposition home or self-care (01) ==
LOC: ED 18:59
PROVIDERS: Physician Assistant
DX: D25.9 Leiomyoma of uterus, unspecified (principal); J45.909 Unspecified asthma, uncomplicated; F41.9 Anxiety disorder, unspecified; G43.909 Migraine, unspecified, not intractable, without status migrainosus; F32.9 Major depressive disorder, single episode, unspecified; F17.200 Nicotine dependence, unspecified, uncomplicated; Z91.040 Latex allergy status; Z88.8 Allergy status to other drugs, medicaments and biological substances; Z79.899 Other long term (current) drug therapy

== ENCOUNTER → 2020-09-25 | Outpatient (CLI) | payer OTHER | END | disposition home or self-care (01) | LOC: CARD 11:23 | PROVIDERS: ATTEND Internal Medicine Cardiovascular Disease | DX: R06.02 Shortness of breath (principal) ==

== ENCOUNTER → 2020-11-03 | Outpatient (CLI) | payer OTHER | END | disposition home or self-care (01) | LOC: CARD 07:28 | PROVIDERS: ATTEND Internal Medicine Cardiovascular Disease | DX: R00.0 Tachycardia, unspecified (principal) ==

== ENCOUNTER → 2021-01-02 | Outpatient (CLI) | payer OTHER | LOC: RAD 15:43 | PROVIDERS: ATTEND Family Medicine | DX: M25.532 Pain in left wrist (principal) ==

== ENCOUNTER → 2021-01-15 | Outpatient (CLI) | payer OTHER | END | disposition home or self-care (01) | LOC: RAD 16:19 | PROVIDERS: ATTEND Family Medicine | DX: R05 Cough (principal) ==

== ENCOUNTER 2021-02-05 21:46 | Emergency (ER) | payer OTHER ==
[~2021-02-05] VITALS: Ht 160 cm; Wt 72.6 kg
[2021-02-06] MEDS ORDERED: Motrin,Rufen800 MG PO (00:50)
== END 2021-02-06 00:55 | disposition home or self-care (01) ==
LOC: ED 21:46
DX: S43.102A Unspecified dislocation of left acromioclavicular joint, initial encounter (principal); Z98.890 Other specified postprocedural states; Z90.49 Acquired absence of other specified parts of digestive tract; Z79.899 Other long term (current) drug therapy; Z91.040 Latex allergy status; Z88.1 Allergy status to other antibiotic agents; Z88.8 Allergy status to other drugs, medicaments and biological substances; Y04.0XXA Assault by unarmed brawl or fight, initial encounter; Y93.89 Activity, other specified; Y92.89 Other specified places as the place of occurrence of the external cause; Y99.9 Unspecified external cause status

== ENCOUNTER → 2021-04-25 | Outpatient (CLI) | payer OTHER | END | disposition home or self-care (01) | LOC: RAD 15:07 | PROVIDERS: ATTEND Chiropractor | DX: M50.322 Other cervical disc degeneration at C5-C6 level (principal) ==

== ENCOUNTER 2021-06-26 15:02 | Emergency (ER) | payer OTHER ==
[~2021-06-26] VITALS: Ht 157.4 cm; Wt 74.8 kg
== END 2021-06-26 18:30 | disposition left against medical advice (07) ==
LOC: ED 15:02
DX: Z53.21 Procedure and treatment not carried out due to patient leaving prior to being seen by health care provider (principal)

== ENCOUNTER → 2021-07-16 | Outpatient (CLI) | payer OTHER | END | disposition home or self-care (01) | LOC: RAD 12:06 | PROVIDERS: ATTEND Family Medicine | DX: M54.2 Cervicalgia (principal) ==

== ENCOUNTER → 2021-07-25 | Outpatient (CLI) | payer OTHER ==
[2021-07-25 14:15] LABS: MEAN CELL VOLUME 93.7 fl (81.0-99.0); MEAN CORPUSCULAR HGB 31.2 pg (27.0-31.0); MEAN CORPUSCULAR HGB CONC 33.3 g/dl (33.0-37.0); MEAN PLATELET VOLUME 9.1 fl (9.6-12.3); RED BLOOD COUNT 4.59 10*6/uL (4.10-5.10); RED CELL DISTRI WIDTH 12.6 % (0-14.5); WHITE BLOOD COUNT 9.5 10*3/uL (4.8-10.8)
[2021-07-25 14:46] LABS: ALBUMIN 3.6 gm/dl (3.1-4.5); ALKALINE PHOSPHATASE 85 U/L (45-117); BUN 11 mg/dl (7-24); CHLORIDE 112 mmol/L (98-107); CHOLESTEROL 183 mg/dL (<200); CREATININE 0.75 mg/dL (0.55-1.02); LDL CHOLESTEROL 110 mg/dL (9-159); SGOT/AST 17 IU/L (3-35); SGPT/ALT 31 U/L (12-78); SODIUM 140 mmol/L (136-145); TOTAL PROTEIN 7.2 gm/dL (6.4-8.2); TRIGLYCERIDES 144 mg/dl (<150)
[2021-07-25 14:51] LABS: VITAMIN D, 25-HYDROXY 17.4 ng/mL (30-100)
[2021-07-25 14:52] LABS: FREE T4 0.92 ng/dl (0.76-1.46)
[2021-07-27 09:07] LABS: TESTOSTERONE FREE, (DIRECT) 3.6 pg/mL (0.0-4.2)
== END ==
LOC: LAB 13:54
PROVIDERS: ATTEND Family Medicine
DX: E74.9 Disorder of carbohydrate metabolism, unspecified (principal); E55.9 Vitamin D deficiency, unspecified

== ENCOUNTER 2021-11-29 22:56 | Emergency (ER) | payer OTHER ==
[~2021-11-29] VITALS: Ht 157.4 cm; Wt 77.1 kg
[2021-11-29] MEDS ORDERED: METFORMIN HYDR500 MG PO (23:08)
[2021-11-29] MEDS ORDERED: GABAPENTIN100 M2 PO (23:08)
[2021-11-30] MEDS ORDERED: NAPROSYN500 MG PO (01:05)
== END 2021-11-30 01:14 | disposition home or self-care (01) ==
LOC: ED 22:56
DX: S63.92XA Sprain of unspecified part of left wrist and hand, initial encounter (principal); M25.532 Pain in left wrist; M79.632 Pain in left forearm; M79.645 Pain in left finger(s); M79.89 Other specified soft tissue disorders; Z91.040 Latex allergy status; Z88.1 Allergy status to other antibiotic agents; Z79.899 Other long term (current) drug therapy; Z98.890 Other specified postprocedural states; Z90.49 Acquired absence of other specified parts of digestive tract; F17.200 Nicotine dependence, unspecified, uncomplicated; W01.0XXA Fall on same level from slipping, tripping and stumbling without subsequent striking against object, initial encounter; Y93.E1 Activity, personal bathing and showering; Y92.89 Other specified places as the place of occurrence of the external cause; Y99.8 Other external cause status

== ENCOUNTER → 2021-12-14 | Outpatient (CLI) | payer OTHER ==
[~2021-12-14] MED LIST changes: +GABAPENTIN100 M2 PO; +METFORMIN HYDR500 MG PO
[2021-12-14 14:32] LABS: FREE T4 1.01 ng/dl (0.76-1.46)
[2021-12-14 14:36] LABS: THYROID STIM HORMONE (HS) 0.966 uIU/ml (0.358-4.75)
== END | disposition home or self-care (01) ==
LOC: LAB 13:46
PROVIDERS: ATTEND Family Medicine
DX: R00.2 Palpitations (principal)

== ENCOUNTER 2021-12-20 16:55 | Emergency (ER) | payer OTHER ==
[~2021-12-20] VITALS: Ht 157.4 cm; Wt 77.1 kg
[2021-12-20 17:33] LABS: BILIRUBIN Negative (Negative); BLOOD Negative (Negative); CLARITY Clear (Clear); COLOR Yellow (Yellow); GLUCOSE Negative (Negative); KETONE Negative (Negative); LEUKO ESTERASE Negative (Negative); NITRITE Negative (Negative); PH 6.5 (4.5-8.0); SPECIFIC GRAVITY <= 1.005 (1.001-1.030); UROBILINOGEN 0.2 E.U./dl (0.0-1.0)
[2021-12-20 17:42] LABS: BACTERIA 3+; URINE AMPHETAMINES < 1000 (1000ng/ml); URINE BARBITURATES < 200 (200ng/ml); URINE BENZODIAZEPINES < 200 (200ng/ml); URINE CANNABINOIDS (THC) > 50 (50ng/ml); URINE COCAINE < 300 (300ng/ml); URINE METHADONE < 300 (300ng/ml); URINE OPIATES < 300 (300ng/ml)
[2021-12-20 17:43] LABS: URINE PHENCYCLIDINE < 25 (25ng/ml)
[2021-12-20 17:44] LABS: BASO # 0.1 10*3/uL (0.0-0.1); BASO % 0.4 % (0.0-1.0); EOS # 0.1 10*3/uL (0.0-0.4); EOS % 0.5 % (1.0-4.0); HEMATOCRIT 42.4 % (37.0-47.0); LYMPH # 2.5 10*3/uL (1.3-4.4); LYMPH % 18.9 % (27.0-41.0); MEAN CORPUSCULAR HGB 31.2 pg (27.0-31.0); MEAN CORPUSCULAR HGB CONC 34.7 g/dl (33.0-37.0); MEAN PLATELET VOLUME 9.6 fl (9.6-12.3); MONO # 0.9 10*3/uL (0.1-1.0); MONO % 6.6 % (3.0-9.0); NEUT # 9.6 10*3/uL (2.3-7.9); NEUT % 73.2 % (47.0-73.0); PLATELET COUNT AUTOMATED 326 10*3/uL (130-400); RED BLOOD COUNT 4.71 10*6/uL (4.10-5.10); RED CELL DISTRI WIDTH 12.9 % (0-14.5); WHITE BLOOD COUNT 13.1 10*3/uL (4.8-10.8)
[2021-12-20 18:00] LABS: ALKALINE PHOSPHATASE 96 U/L (45-117); BUN 8 mg/dl (7-24); CHLORIDE 111 mmol/L (98-107); CPK 108 U/L (26-192); CREATININE 0.76 mg/dL (0.55-1.02); POTASSIUM 3.6 mmol/L (3.5-5.1); SGOT/AST 18 IU/L (3-35); SGPT/ALT 33 U/L (12-78); SODIUM 139 mmol/L (136-145); TOTAL PROTEIN 7.7 gm/dL (6.4-8.2)
[2021-12-20 18:09] LABS: ACETAMINOPHEN (TYLENOL) < 5.0 ug/ml (10-30); BETA-HCG, QUANT < 1.0 mIU/mL (1-3); ETHYL ALCOHOL < 3.0 mg/dl (<3)
== END 2021-12-20 23:00 ==
LOC: ED 16:55
PROVIDERS: Emergency Medicine
DX: R45.851 Suicidal ideations (principal); Z20.822 Contact with and (suspected) exposure to COVID-19

== ENCOUNTER → 2022-02-08 | Outpatient (CLI) | payer OTHER | END | disposition home or self-care (01) | LOC: RAD 10:24 | PROVIDERS: ATTEND Family Medicine | DX: M54.50 Low back pain, unspecified (principal) ==

== ENCOUNTER → 2022-04-19 | Outpatient (CLI) | payer OTHER | END | disposition home or self-care (01) | LOC: RAD 10:31 | PROVIDERS: ATTEND Family Medicine | DX: M25.551 Pain in right hip (principal); M25.552 Pain in left hip ==

== ENCOUNTER → 2022-04-23 | Outpatient (CLI) | payer OTHER ==
[2022-04-24 07:06] LABS: HBSAG Negative (Negative); HEP B CORE AB, IGM Negative (Negative)
[2022-04-24 08:08] LABS: RHEUMATOID FACTOR <10.0 IU/mL (<14.0)
== END | disposition home or self-care (01) ==
LOC: LAB 14:42
PROVIDERS: ATTEND Family Medicine
DX: J45.40 Moderate persistent asthma, uncomplicated (principal); R53.83 Other fatigue; G47.33 Obstructive sleep apnea (adult) (pediatric); Z68.32 Body mass index [BMI] 32.0-32.9, adult; Z86.16 Personal history of COVID-19

== ENCOUNTER 2022-07-27 14:28 | Emergency (ER) | payer OTHER ==
[2022-07-27] MEDS ORDERED: CYCLOBENZAPRINE5 M3 PO (17:48)
== END 2022-07-27 17:53 | disposition home or self-care (01) ==
LOC: ED 14:28
DX: M25.522 Pain in left elbow (principal); M25.552 Pain in left hip; Z91.040 Latex allergy status; Z88.1 Allergy status to other antibiotic agents; Z98.890 Other specified postprocedural states; Z90.49 Acquired absence of other specified parts of digestive tract; W17.89XA Other fall from one level to another, initial encounter; Y93.89 Activity, other specified; Y92.89 Other specified places as the place of occurrence of the external cause; Y99.8 Other external cause status

== ENCOUNTER → 2022-07-31 | Outpatient (CLI) | payer OTHER ==
[~2022-07-31] MED LIST changes: +CYCLOBENZAPRINE5 M3 PO
== END | disposition home or self-care (01) ==
LOC: RAD 14:30
PROVIDERS: ATTEND Family Medicine
DX: S50.02XA Contusion of left elbow, initial encounter (principal); M25.522 Pain in left elbow; X58.XXXA Exposure to other specified factors, initial encounter; Y93.89 Activity, other specified; Y92.89 Other specified places as the place of occurrence of the external cause; Y99.8 Other external cause status

== ENCOUNTER 2022-10-21 14:36 | Emergency (ER) | payer OTHER ==
[~2022-10-21] VITALS: Wt 69.4 kg
[2022-10-21 16:02] LABS: BASO % 0.4 % (0.0-1.0); EOS # 0.2 10*3/uL (0.0-0.4); EOS % 2.1 % (1.0-4.0); HEMATOCRIT 39.4 % (37.0-47.0); LYMPH # 2.1 10*3/uL (1.3-4.4); LYMPH % 24.7 % (27.0-41.0); MONO # 0.6 10*3/uL (0.1-1.0); MONO % 7.2 % (3.0-9.0); NEUT # 5.6 10*3/uL (2.3-7.9); NEUT % 65.4 % (47.0-73.0); PLATELET COUNT AUTOMATED 231 10*3/uL (130-400); RED BLOOD COUNT 4.19 10*6/uL (4.10-5.10); RED CELL DISTRI WIDTH 14.3 % (0-14.5); WHITE BLOOD COUNT 8.5 10*3/uL (4.8-10.8)
[2022-10-21 16:22] LABS: ALKALINE PHOSPHATASE 55 U/L (46-116); BUN 9 mg/dl (9-23); CHLORIDE 107 mmol/L (98-107); LIPASE 28 U/L (12-53); POTASSIUM 4.5 mmol/L (3.4-5.1); SGPT/ALT 10 U/L (10-49); TOTAL PROTEIN 6.7 gm/dL (6.0-8.0)
[2022-10-21 16:24] LABS: B-hCG (QUALITATIVE) NEGATIVE (NEGATIVE)
[2022-10-21 17:35] LABS: BILIRUBIN Negative (Negative); BLOOD Negative (Negative); CLARITY Clear (Clear); COLOR Yellow (Yellow); GLUCOSE Negative (Negative); KETONE Trace (Negative); LEUKO ESTERASE Negative (Negative); NITRITE Negative (Negative); PH 6.5 (4.5-8.0); SPECIFIC GRAVITY >= 1.030 (1.001-1.030); UROBILINOGEN 0.2 E.U./dl (0.0-1.0)
[2022-10-21 18:17] LABS: RBC 0-2 rbc/hpf (0-2); WBC 0-2 wbc/hpf (0-5)
== END 2022-10-21 18:35 | disposition home or self-care (01) ==
LOC: ED 14:36
PROVIDERS: Physician Assistant
DX: R10.9 Unspecified abdominal pain (principal); Z90.49 Acquired absence of other specified parts of digestive tract; Z91.040 Latex allergy status; Z88.1 Allergy status to other antibiotic agents; Z98.890 Other specified postprocedural states

== ENCOUNTER → 2023-12-23 | Outpatient (CLI) | payer OTHER ==
[2023-12-23 17:19] LABS: HEMATOCRIT 37.9 % (37.0-47.0); MEAN CELL VOLUME 96.9 fl (81.0-99.0); MEAN CORPUSCULAR HGB 31.7 pg (27.0-31.0); MEAN CORPUSCULAR HGB CONC 32.7 g/dl (33.0-37.0); RED BLOOD COUNT 3.91 10*6/uL (4.10-5.10); RED CELL DISTRI WIDTH 13.6 % (0-14.5); WHITE BLOOD COUNT 8.8 10*3/uL (4.8-10.8)
[2023-12-23 17:43] LABS: ALKALINE PHOSPHATASE 59 U/L (46-116); BUN 9 mg/dl (9-23); CHLORIDE 106 mmol/L (98-107); CHOLESTEROL 156 mg/dL (<200); LDL CHOLESTEROL 97 mg/dL (9-159); POTASSIUM 3.4 mmol/L (3.4-5.1); TOTAL PROTEIN 6.8 gm/dL (6.0-8.0); TRIGLYCERIDES 80 mg/dl (<150)
[2023-12-23 17:44] LABS: SGPT/ALT < 7 U/L (5-49)
== END | disposition home or self-care (01) ==
LOC: LAB 17:04
PROVIDERS: ATTEND Family Medicine
DX: E78.00 Pure hypercholesterolemia, unspecified (principal); F41.1 Generalized anxiety disorder; E74.9 Disorder of carbohydrate metabolism, unspecified; F90.9 Attention-deficit hyperactivity disorder, unspecified type

== ENCOUNTER → 2024-03-02 | Outpatient (CLI) | payer OTHER | END | disposition home or self-care (01) | LOC: US 15:00 | PROVIDERS: ATTEND Family Medicine | DX: N93.9 Abnormal uterine and vaginal bleeding, unspecified (principal) ==

== ENCOUNTER → 2024-05-19 | Outpatient (CLI) | payer OTHER | END | disposition home or self-care (01) | LOC: US 14:30 | PROVIDERS: ATTEND Family Medicine | DX: R10.31 Right lower quadrant pain (principal); F19.10 Other psychoactive substance abuse, uncomplicated; Z90.49 Acquired absence of other specified parts of digestive tract ==

== ENCOUNTER 2024-06-28 07:49 | Emergency (ER) | payer OTHER ==
[~2024-06-28] VITALS: Ht 157.4 cm; Wt 59.0 kg
[2024-06-28] MEDS ORDERED: SODIUM CHLORIDE 0.9% 1,000 ML IV ONE (08:20)
[2024-06-28] MEDS ORDERED: Ketorolac Tromethamine 15 MG/ML VIAL IV ONE (08:25)
[2024-06-28] MEDS ORDERED: methylPREDNISolone sod succ 125 MG VIAL IV ONE (08:25)
[2024-06-28] MEDS ORDERED: Ondansetron Hydrochloride 4 MG/2 ML VIAL IV ONE (08:25)
[2024-06-28] MEDS ORDERED: diphenhydrAMINE hydrochloride 50 MG/ML VIAL IV ONE (08:25)
[2024-06-28] MEDS ORDERED: MORPHINE Sulfate 2 MG/ML SYR IV ONE (10:00)
== END 2024-06-28 10:31 | disposition home or self-care (01) ==
LOC: ED 07:49
DX: G43.909 Migraine, unspecified, not intractable, without status migrainosus (principal); E11.9 Type 2 diabetes mellitus without complications; J45.909 Unspecified asthma, uncomplicated; F41.9 Anxiety disorder, unspecified; F31.9 Bipolar disorder, unspecified; Z87.442 Personal history of urinary calculi; Z91.040 Latex allergy status; Z88.2 Allergy status to sulfonamides; Z88.8 Allergy status to other drugs, medicaments and biological substances; Z90.49 Acquired absence of other specified parts of digestive tract; Z98.890 Other specified postprocedural states